=== PATIENT | male | born 1975 | race African-American/Black ===

== ENCOUNTER 2016-10-27 13:12 | Inpatient (IN) ==
[2016-10-27] MEDS ORDERED: ONDANSETRON 4 MG/2 ML VIAL IV STA ×2 (13:34→15:40)
[2016-10-27] MEDS ORDERED: SODIUM CHLORIDE 0.9% 1,000 ML IV STA (13:34)
[2016-10-27] MEDS ORDERED: ALBUTEROL/IPRATROPIUM 3 ML NEB RESP TX STA ×2 (13:34→18:14)
--- NOTE | 2016-10-27 13:39 | Emergency Department Note ---
Arrival - Arrival Chief Complaint: Abdominal / Flank Pain Stated Complaint: abd pain,vomiting ED Nursing Triage Note: C/O Having right sided pain that started today at 1030, states the pain is from the right upper abd.to the lower right side., + nausea. , denies having diarrhea, denies having fever, + drinks alcohol daily 2 pints per day., + diaphrosis , Mode of Arrival: Ambulatory Limitations: No Limitations Source: Patient Time Seen by Provider: 10/27/16 13:33 - History of Present Illness HPI Narrative: This 41-year-old black male presents with a history of onset approximately 4 hours ago of primarily right upper and midepigastric severe sharp abdominal pain not associated with nausea, vomiting, diarrhea, chills, fever, or history of peptic ulcer disease, pancreatitis, or inflammatory bowel disease. He does have intermittent reflux and does drink 2 pints of alcohol a day. He likewise has asthma and states that in the last 24 hours his asthma has begun to act up as well. Over the past several days he states his stomach has been more gassy and bloated but without any other symptoms. He currently appears quite uncomfortable but is stable medically. Onset (ago): hour(s) (Patient presents approximately 4 hours post onset of symptoms) Allergies/Adverse Reactions: Allergies Allergy/AdvReac Type Severity Reaction Status Date / Time Seafood Allergy HIVES Verified 10/27/16 13:22 Home Medications: Home Medications Medication Instructions Recorded Confirmed Type Albuterol Neb [Proventil Neb] 2.5 mg RESP TX Q4HR 10/27/16 10/27/16 History Review of System - Review of System 12 point system: reviewed and no additional remarkable complaints except as stated - Review of System Constitutional: Present: as per HPI Gastrointestinal: Present: as per HPI Medical,Surgical,& Family Hx - Medical History Cardio: History of: Hypertension - Social History Smoking Status: Never smoker Frequency of Alcohol Use: Frequently Type of Drug Use: None Exam Physical Examination: GENERAL: Well developed, well nourished black male bent over groaning. HEENT: Normocephalic. No trauma. Moist mucous membranes. EOMI. PERRLA. ENT NML NECK: Supple. No adenopathy. CARDIAC: Regular. No murmurs. Heart rate 92 CHEST: Clear to auscultation. No respiratory distress. O2 sat 100% ABDOMEN: Firm, midepigastric and right upper quadrant tenderness with significant rebound, hypoactive bowel sounds. EXTREMITIES: No trauma. Normal ROM. No pedal edema. SKIN: No diaphoresis. No rash. NEURO: Alert. Neuro intact. No focal deficits. Vital Signs: Vital Signs Temperature 98.6 F 10/27/16 14:22 Pulse Rate 85 10/27/16 18:25 Respiratory Rate 18 10/27/16 18:25 Blood Pressure 187/93 10/27/16 15:30 O2 Sat by Pulse Oximetry 100 10/27/16 18:25 Course - Reevaluation(s) Reevaluation #1: Discussed with patient the need for hospitalization. - Consultations Consultation #1: Discussed with hospitalist service will admit for further evaluation treatment. Results - Labs CBC & BMP: 10/27/16 13:59 10/27/16 13:59 Labs: I reviewed the laboratory noted the very elevated lipase - Impressions EKG: Sinus rhythm at 92 with normal IN interval and QRS duration. Right ventricular hypertrophy noted. Nonspecific ST changes noted no acute injury pattern noted. - Diagnostic Findings Procedure: Abdominal x-ray: image reviewed by me, report reviewed by me ( Negative abdominal film but notable right hip sclerotic lesion), CT Abdomen and Pelvis: image reviewed by me, report reviewed by me (Retroperitoneal and anterior abdominal fat stranding consistent with pancreatitis as well as fullness to the head of the pancreas, but no discrete mass, fatty liver) Disposition Clinical Impression: Pancreatitis, Asthma, Alcohol use Case discussed with: patient Condition: Guarded Time of Disposition: 18:33
[2016-10-27 14:07] LABS: Basophils % 0.5 % (0.0-0.8); Eosinophils # 0.1 10*3/uL (0.0-0.87); Eosinophils % 1.8 % (0.00-10.9); Hematocrit 48.2 VOL% (42.0-52.0); Hemoglobin 17.1 GM/DL (14.0-18.0); Immature Granulocytes % 0.3 %; Immature Granulocytes Absolute 0.02 #; Lymphocytes # 2.2 10*3/uL (1.4-4.0); Lymphocytes % 35.8 % (21.2-54.2); Mean Corpuscular HGB Conc 35.5 GM/DL (32-36); Mean Corpuscular Hemoglobin 32 PG (27-34); Mean Corpuscular Volume 90.9 FL (87-102); Mean Platelet Volume 9.6 FL (9.6-12.0); Monocytes # 0.5 10*3/uL (0.11-0.8); Monocytes % 8.4 % (1.7-12.7); Neutrophils # 3.2 10*3/uL (1.4-7.4); Neutrophils % 53.2 % (38.7-73.9); Platelet Count 230 T/CUMM (130-400); Red Cell Distribution Width 13.5 % (9.3-17.3)
[2016-10-27] MEDS ORDERED: ONDANSETRON 4 MG/2 ML VIAL ONE ×2 (14:12→16:00)
--- NOTE | 2016-10-27 14:14 | EKG Report ---
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
--- NOTE | 2016-10-27 14:16 | XRay Report ---
Exam: XR abdomen 2V Date: 10/27/2016 1:35 PM Comparison: None Indication: Generalized abdominal pain Technique:[Supine and erect abdomen] Findings: Nonobstructed bowel gas pattern. No free air is identified. No acute osseous findings. 29 mm sclerotic finding in the medial neck of the right femur with surrounding radiolucency. Impression: Nonobstructed bowel gas pattern with no free air. 29 mm ossific lesion in the medial neck of the right femur. There is central sclerosis with surrounding radiolucency. No cortical destruction which indicates that the finding may be benign but is indeterminate and follow-up x-ray of the right hip is recommended for further evaluation. PROCEDURE INTERPRETED AT [facility] DEPARTMENT OF RADIOLOGY Final Report Signed by: Dr. Christiane Dale
[2016-10-27 14:17] LABS: Apearance,Urine CLEAR (Clear); Bilirubin,Urine Negative (Negative); Blood, Urine Negative (Negative); Glucose,Urine (UA) Negative (Negative); Hyaline Casts,Urine 3 /LPF (0-3); Ketones,Urine Negative (Negative); Mucus,Urine Occasional /LPF (Occasional); Nitrite,Urine Negative (Negative); Protein,Urine 30 MG/DL; RBC,Urine 1 /HPF (0-4); Urine Color Yellow (Yellow); Urine Specific Gravity 1.011 (1.001-1.035); Urine Urobilinogen < 2.0 EU/DL (0.2-1.0); WBC,Urine 1 /HPF (0-6)
[2016-10-27 14:24] LABS: Barbiturates Screen,Urine Negative (Negative); Benzodiazepines Screen,Urine Negative (Negative); Cannabinoid Screen,Urine Negative (Negative); Opiate Screen,Urine Negative (Negative); Phencyclidine Screen,Urine Negative (Negative)
[2016-10-27 14:34] LABS: Albumin 3.2 G/DL (3.4-5.0); Bilirubin,Total 0.9 MG/DL (0.2-1.0); Calcium 9.3 MG/DL (8.5-10.1); Osmolality,Calculated 277.4 MOS/KG (273-304); Potassium 3.4 MMOL/L (3.5-5.1); Total Protein 7.8 G/DL (6.4-8.3)
--- NOTE | 2016-10-27 14:43 | XRay Report ---
Exam: XR hip 2V RT Date: 10/27/2016 2:20 PM Comparison: None Indication: Abnormal right hip noted on x-ray of the abdomen Technique:[AP and lateral right hip] Findings: Persistent 29 mm sclerotic finding in the medial neck of the right femur with surrounding radiolucency. The finding is actually better seen on the abdominal x-rays. No cortical destruction, fracture, or dislocation. Impression: 29 mm ossific lesion in the medial neck of the right femur which probably is related to benign bone tumor such as enchondroma or less likely sequela of chronic osteomyelitis. Short-term follow-up x-ray or MRI may be helpful for further evaluation. PROCEDURE INTERPRETED AT [facility] DEPARTMENT OF RADIOLOGY Final Report Signed by: Dr. Christiane Dale
[2016-10-27 14:44] LABS: PT Patient Result 10.3 SECS; Partial Thromboplastin Time 26.1 SECS (0-40)
[2016-10-27 14:46] LABS: Troponin I Only < 0.015 NG/ML (0.00-0.045)
[2016-10-27 15:01] LABS: Lactic Acid 3.2 MMOL/L (0.4-2.0)
[2016-10-27] MEDS ORDERED: SODIUM CHLORIDE 0.9% 2,000 ML IV STA (15:40)
[2016-10-27] MEDS ORDERED: HYDROmorphone 2 MG/1 ML VIAL IV STA ×2 (15:40→18:20)
[2016-10-27] MEDS ORDERED: METOCLOPRAMIDE 10 MG/2 ML VIAL IV STA (15:42)
[2016-10-27] MEDS ORDERED: PANTOPRAZOLE 40 MG VIAL IV STA (15:42)
[2016-10-27] MEDS ORDERED: PANTOPRAZOLE 40 MG VIAL IV ONE (16:00)
[2016-10-27] MEDS ORDERED: METOCLOPRAMIDE 10 MG/2 ML VIAL ONE (16:00)
[2016-10-27] MEDS ORDERED: HYDROmorphone 2 MG/1 ML VIAL ONE ×2 (16:01→18:28)
--- NOTE | 2016-10-27 18:24 | CT Report ---
Postcontrast CT abdomen and pelvis October 27, 2016 Indication: Abdominal pain and pancreatic cancer Comparison: Not available Technique: CT scanning of the abdomen was performed after administration of intravenous contrast per routine protocol. Axial, coronal and sagittal images were submitted for interpretation. Findings: Lung bases well aerated. Liver is enlarged and diffusely hypoattenuating. The gallbladder is nondistended. No ductal dilatation. There is slight heterogeneity and fullness of the pancreatic head. No discrete mass lesions are identified. Stranding soft tissue tissue density is identified within the retroperitoneal and anterior abdominal fat tracking along the pancreas as well as a second third portions of duodenum. No associated bowel wall thickening. Kidneys are normal in morphology and enhancement. Punctate left renal cysts are noted. No hydronephrosis or perinephric fluid collection. Appendix is normal. No colonic abnormalities. Urinary bladder is within normal limits. The prostate gland. No acute osseous abnormality. Impression: 1. Stranding soft tissue density within the upper abdomen predominantly involving the retroperitoneal and anterior abdominal fat at the level of the pancreas and duodenum. Unclear if the findings represented active duodenitis and/or resolving pancreatitis. 2. Mild heterogeneity and fullness to the pancreatic head. No discrete mass lesion is clearly delineated. 3. Hepatomegaly with diffuse steatosis PROCEDURE INTERPRETED AT [facility] DEPARTMENT OF RADIOLOGY Final Report Signed by: Josué Hernandez
[2016-10-27] MEDS ORDERED: hydrALAZINE 20 MG/1 ML VIAL IV STA (19:52)
[2016-10-27] MEDS ORDERED: hydrALAZINE 20 MG/1 ML VIAL ONE (19:53)
--- NOTE | 2016-10-27 19:58 | Hospitalist History & Physical ---
Assessment and Plan (1) Pancreatitis Status: Acute Assessment and plan: hydration, morphine for pain, clear liquids Current Visit: Yes (2) Asthma Status: Acute Assessment and plan: duoneb and solumedrol Current Visit: Yes (3) Hypertension Status: Acute Current Visit: Yes (4) Hypokalemia Status: Acute Assessment and plan: replace and recheck in am Current Visit: Yes (5) Elevated liver enzymes Status: Acute Assessment and plan: cmp in am Current Visit: Yes (6) Alcoholic Status: Acute Assessment and plan: thiamine, tranxene, folate with ativan prn Current Visit: Yes History of Present Illness Chief complaint: abdominal pain History of present illness: Mr. Barrera is a 41 year old male 4 hours ago midepigastric severe sharp abdominal pain with nausea and vomiting. Tried over the counter relief without success. He does have intermittent reflux and does drink 2 pints of whiskey a day. He likewise has asthma and states that in the last 24 hours his asthma has begun to act up as well. Poor historian Home Medications Medication Instructions Recorded Confirmed Type Albuterol Neb [Proventil Neb] 2.5 mg RESP TX Q4HR 10/27/16 10/27/16 History Allergies Allergy/AdvReac Type Severity Reaction Status Date / Time Seafood Allergy HIVES Verified 10/27/16 13:22 Medical,Surgical,& Family Hx - Medical History Cardio: History of: Hypertension Respiratory: History of: Asthma - Surgical History Additional Surgical History: none - Family History Family History: Reports;: Additional Family History (RA) Denies;: Family Cancer, Family Diabetes, Family Heart Disease, Family Stroke - Social History Smoking Status: Never smoker Frequency of Alcohol Use: Frequently Type of Drug Use: None Marital Status: Single Lives With:: Alone Functional capacity: independent ambulation - Constitutional Constitutional: Absent: fatigue, fever(s), headache(s) - EENT Eyes: Absent: blurry vision, diplopia Ears: Absent: decreased hearing, ear discharge Nose, mouth and throat: Absent: headache(s), sore throat - Cardiovascular Cardiovascular: Absent: chest pain at rest, dyspnea - Respiratory Respiratory: Absent: dyspnea, dyspnea on exertion, wheezing - Gastrointestinal Gastrointestinal: Present: abdominal pain, nausea, vomiting. Absent: constipation, diarrhea - Genitourinary Genitourinary: Absent: difficulty urinating, dysuria - Neurological Neurological: Present: confusion. Absent: headache(s), syncope - Psychiatric Psychiatric: Absent: anxiety, depression - Endocrine Endocrine: Absent: cold intolerance, fatigue - Hematologic/Lymphatic Hematologic/Lymphatic: Absent: easy bleeding, easy bruising Exam - Constitutional Vitals: Period Temp Pulse Resp BP Sys/Hansen Pulse Ox Last 24 Hr 98.6 F-98.6 F 79-95 18-22 149-187/93-136 95-100 General appearance: normal weight, no acute distress - Head Head exam: Present: normal inspection, normocephalic - Eye Eye exam: Present: EOMI. Absent: scleral icterus Pupils: Present: PEPE, normal accommodation - ENT ENT exam: Present: normal exam, normal external ear exam - Neck Neck exam: Absent: lymphadenopathy, thyromegaly - Respiratory Respiratory exam: Present: clear to auscultation bilaterally. Absent: rhonchi, wheezes - Cardiovascular Cardiovascular exam: Present: regular rate and rhythm, tachycardia - GI/Abdominal GI/Abdominal exam: Present: hypoactive bowel sounds, tenderness - Extremities Exam Extremities exam: Present: normal inspection, normal capillary refill - Neurological Exam Neurological exam: Present: alert, oriented X3, CN II-XII intact, reflexes normal. Absent: motor sensory deficit - Psychiatric Psychiatric exam: Present: normal affect, normal mood - Skin Skin exam: Present: normal color, warm Results - Labs CBC & BMP: 10/27/16 13:59 10/27/16 13:59 Lab Results: I have reviewed the past 24 hour labs - Diagnostic Findings Procedure: CT Abdomen and Pelvis: report reviewed by me (pancreatitis with liver steatosis )
[2016-10-27] MEDS ORDERED: PROMETHAZINE 25 MG/1 ML VIAL IM PRN (20:05)
[2016-10-27] MEDS ORDERED: ONDANSETRON 4 MG/2 ML VIAL IV PRN (20:05)
[2016-10-27] MEDS ORDERED: methylPREDNISolone SOD SUC 40 MG/1 ML VIAL IV SCH (20:05)
[2016-10-27] MEDS ORDERED: ACETAMINOPHEN 325 MG TABLET PO PRN (20:05)
[2016-10-27] MEDS: SODIUM CHLORIDE 0.45% 1,000 ML IV SCH (20:42)
[2016-10-27] MEDS: ENOXAPARIN 40 MG/0.4 ML SYRINGE SUBCUT SCH (20:42)
[2016-10-27] MEDS: CLORAZEPATE 7.5 MG TABLET PO SCH (20:43)
[2016-10-27] MEDS: POTASSIUM CHLORIDE RIDER 10 MEQ in PREMIX 1 EACH IV SCH ×3 (20:43→23:30)
[2016-10-27] MEDS: CARVEDILOL 6.25 MG TABLET PO SCH (20:43)
[2016-10-27] MEDS ORDERED: ALBUTEROL 2.5 MG/3 ML NEB RESP TX SCH (22:00)
[2016-10-27] MEDS: LORazepam 2 MG/1 ML VIAL IV PRN (22:27)
[2016-10-27] MEDS: ALBUTEROL 2.5 MG/3 ML NEB RESP TX SCH (22:30)
[2016-10-28] MEDS: POTASSIUM CHLORIDE RIDER 10 MEQ in PREMIX 1 EACH IV SCH (00:43)
[2016-10-28] MEDS: LORazepam 2 MG/1 ML VIAL IV PRN (01:42)
[2016-10-28] MEDS: ALBUTEROL 2.5 MG/3 ML NEB RESP TX SCH (02:13)
[2016-10-28] MEDS: hydrALAZINE 20 MG/1 ML VIAL IV PRN (02:57)
[2016-10-28 04:38] LABS: Hematocrit 45.1 VOL% (42.0-52.0); Hemoglobin 15.6 GM/DL (14.0-18.0); Immature Granulocytes % 0.4 %; Immature Granulocytes Absolute 0.04 #; Lymphocytes # 0.4 10*3/uL (1.4-4.0); Lymphocytes % 4.4 % (21.2-54.2); Mean Corpuscular HGB Conc 34.6 GM/DL (32-36); Mean Corpuscular Hemoglobin 32 PG (27-34); Mean Platelet Volume 10.5 FL (9.6-12.0); Monocytes # 0.2 10*3/uL (0.11-0.8); Monocytes % 2.1 % (1.7-12.7); Neutrophils # 8.5 10*3/uL (1.4-7.4); Neutrophils % 93.1 % (38.7-73.9); Platelet Count 210 T/CUMM (130-400); Red Cell Distribution Width 13.7 % (9.3-17.3); White Blood Count 9.1 T/CUMM (4-12)
[2016-10-28 05:06] LABS: Albumin 3.1 G/DL (3.4-5.0); Bilirubin,Total 2.2 MG/DL (0.2-1.0); Calcium 8.4 MG/DL (8.5-10.1); Magnesium 1.5 MG/DL (1.8-2.4); Osmolality,Calculated 270.1 MOS/KG (273-304); Potassium 3.3 MMOL/L (3.5-5.1); Total Protein 7.2 G/DL (6.4-8.3)
[2016-10-28 05:30] LABS: Band Neutrophils 4 % (0-10); Hypochromasia 1+; Lymphocytes 2 % (20-55); Platelet Estimate Normal; Segmented Neutrophils 93 % (50-85); Total Cells Counted 100
[2016-10-28] MEDS ORDERED: ALBUTEROL 2.5 MG/3 ML NEB RESP TX ONE (06:06)
[2016-10-28] MEDS ORDERED: ALBUTEROL 2.5 MG/3 ML NEB RESP TX STA (06:06)
[2016-10-28] MEDS: methylPREDNISolone SOD SUC 125 MG/2 ML VIAL IV SCH ×3 (06:25→22:06)
[2016-10-28] MEDS ORDERED: FOLIC ACID 5 MG/1 ML VIAL IV SCH (09:00)
[2016-10-28] MEDS: CLORAZEPATE 7.5 MG TABLET PO SCH ×3 (09:22→22:04)
[2016-10-28] MEDS: CARVEDILOL 6.25 MG TABLET PO SCH ×2 (09:23→22:03)
[2016-10-28] MEDS: THIAMINE 200 MG/2 ML VIAL IV SCH (09:56)
[2016-10-28] MEDS: FOLIC ACID INJ 1 MG in SYRINGE 1 EACH IV SCH (10:01)
[2016-10-28] MEDS: ALBUTEROL/IPRATROPIUM 3 ML NEB RESP TX PRN ×2 (11:07→14:18)
--- NOTE | 2016-10-28 11:48 | Hospitalist Progress Note ---
Assessment and Plan (1) Pancreatitis Status: Acute Assessment and plan: Patient is started on clear liquids now. Seem to be tolerating it. I have evaluated both patient and nursing that if she he developed discomfort after eating to let us know. We will advance his diet in the morning. Should be noted that the patient did ask to be given something to eat. Current Visit: Yes (2) Asthma Status: Acute Assessment and plan: Continue aerosol treatment for asthma including nebulized albuterol and ipratropium bromide. Current Visit: Yes (3) Hypokalemia Status: Acute Assessment and plan: Repeat chemistry ordered for tomorrow. Include magnesium for tomorrow's chemistry testing. Current Visit: Yes (4) Elevated liver enzymes Status: Acute Current Visit: Yes (5) Alcoholic Status: Acute Assessment and plan: Keep him on monitoring for possibility of DVTs. Benzodiazepines have been ordered in case he develops altered mental status tachycardia and jitteriness. I have talked with the patient at length regarding his habit of alcohol consumption that is directly responsible for his pancreatitis and liver information. He has never had pancreatitis before. He promises to stop drinking. Current Visit: Yes Hospitalist: Subjective Interval history: Patient has been seen interviewed and examined and chart has been reviewed. This is a 41-year-old gentleman admitted overnight with acute abdomen found to have acute pancreatitis associated with alcohol overuse. Patient also has elevated liver enzymes with AST greater than ALT. Most likely is alcoholic hepatitis. Discriminant factor put it at mild alcoholic hepatitis looking at the total bilirubin of 2.2 albumin of 3.2 normal coag profile. Her lipase today is 1879 slightly lower than yesterday and he is already eating with clear liquids. Still complaining of a lot of abdominal pain hematocrit is stable no respiratory problems and a normal lung exam at the bedside (bedside index of severity for acute pancreatitis is around mild to moderate). It is not vomiting anymore Exam - Constitutional Vitals: Period Temp Pulse Resp BP Sys/Hansen Pulse Ox Last 24 Hr 97.1 F-98.6 F 79-109 18-24 135-187/79-136 92-100 General appearance: normal weight, no acute distress - Head Head exam: Present: normocephalic, atraumatic - Eye Eye exam: Present: EOMI, other (Dusky sclera) Pupils: Present: PEPE - ENT ENT exam: Present: normal exam - Neck Neck exam: Present: normal inspection - Respiratory Respiratory exam: Present: clear to auscultation bilaterally - Cardiovascular Cardiovascular exam: Present: tachycardia, other (Regular rhythm with sinus control) - GI/Abdominal GI/Abdominal exam: Present: tenderness (Diffuse tenderness), soft, other - Extremities Exam Extremities exam: Present: full ROM - Neurological Exam Neurological exam: Present: alert, oriented X3, CN II-XII intact - Psychiatric Psychiatric exam: Present: normal affect, normal mood, depressed - Skin Skin exam: Present: normal color, warm, dry Results - Labs CBC & BMP: 10/28/16 03:36 10/28/16 03:36 Lab Results: I have reviewed the past 24 hour labs (Tomorrow morning labs ordered)
[2016-10-28] MEDS: SODIUM CHLORIDE 0.45% 1,000 ML IV SCH ×3 (14:20→21:25)
[2016-10-28] MEDS: ENOXAPARIN 40 MG/0.4 ML SYRINGE SUBCUT SCH (22:04)
[2016-10-29] MEDS: ALBUTEROL/IPRATROPIUM 3 ML NEB RESP TX PRN (01:58)
[2016-10-29 03:34] LABS: Basophils % 0.1 % (0.0-0.8); Hematocrit 42.7 VOL% (42.0-52.0); Hemoglobin 15.1 GM/DL (14.0-18.0); Immature Granulocytes % 0.5 %; Immature Granulocytes Absolute 0.06 #; Lymphocytes # 0.4 10*3/uL (1.4-4.0); Lymphocytes % 3.4 % (21.2-54.2); Mean Corpuscular HGB Conc 35.4 GM/DL (32-36); Mean Corpuscular Hemoglobin 33 PG (27-34); Mean Corpuscular Volume 91.8 FL (87-102); Mean Platelet Volume 10.4 FL (9.6-12.0); Monocytes # 0.2 10*3/uL (0.11-0.8); Monocytes % 1.5 % (1.7-12.7); Neutrophils # 12.4 10*3/uL (1.4-7.4); Neutrophils % 94.5 % (38.7-73.9); Platelet Count 188 T/CUMM (130-400); Red Blood Count 4.65 MC/CUMM (3.8-5.5); Red Cell Distribution Width 14.1 % (9.3-17.3); White Blood Count 13.1 T/CUMM (4-12)
[2016-10-29 04:00] LABS: Albumin 2.7 G/DL (3.4-5.0); Bilirubin,Total 1.3 MG/DL (0.2-1.0); Calcium 8.1 MG/DL (8.5-10.1); Osmolality,Calculated 274.7 MOS/KG (273-304); Potassium 2.9 MMOL/L (3.5-5.1); Total Protein 6.7 G/DL (6.4-8.3)
[2016-10-29] MEDS: SODIUM CHLORIDE 0.45% 1,000 ML IV SCH ×4 (04:14→21:54)
[2016-10-29] MEDS: methylPREDNISolone SOD SUC 125 MG/2 ML VIAL IV SCH (06:14)
[2016-10-29 06:26] LABS: Band Neutrophils 1 % (0-10); Lymphocytes 2 % (20-55); Platelet Estimate Normal; Segmented Neutrophils 96 % (50-85); Total Cells Counted 100
--- NOTE | 2016-10-29 08:45 | Hospitalist Progress Note ---
Hospitalist: Subjective Interval history: Pt reports upper abdominal pain is improving. He had oral pain medication this am. No fever. No nausea or vomiting. Mild sweats but no tremors or confusion. He requests resources to aid in alcohol cessation. Exam - Constitutional Vitals: Period Temp Pulse Resp BP Sys/Hansen Pulse Ox Last 24 Hr 97.1 F-97.6 F 84-99 18-22 133-154/78-107 90-98 Exam: GEN: Awake, alert and oriented to person, place, time and situation lying in bed in NAD. No tremors or sweats HEENT: no thrush. Clear sclera. No nystagmus CV: RRR nl S1/ S2 no M/R/G LUNGS: CTAB nonlabored ABD: Soft, NT, slightly distended, +BS EXT: Warm and well perfused. No clubbing, cyanosis or edema. MAGUIRE equally. Results - Labs CBC & BMP: 10/29/16 02:55 10/29/16 02:55 - Impressions (1) Pancreatitis due to alcohol- improving Status: Acute Assessment and plan: -Advance to full liquid diet and if tolerated, low fat soft diet -Decrease IVF -PPI -Check lipid panel Current Visit: Yes (2) Asthma exacerbation- improved Status: Acute Assessment and plan: Continue bronchodilators. Stop IV steroids. Current Visit: Yes (3) Hypokalemia/ Hypomagnesemia Status: Acute Assessment and plan: Replace lytes. Recheck in am. Check Phosphorus and replace as clinically indicated Current Visit: Yes (4) Elevated liver enzymes- likely due to chronic alcohol use- improving Status: Acute Current Visit: Yes - Fatty liver noted on CT scan without dilated GB or gallstones noted. - Serial labs (5) Alcoholism Status: Acute Assessment and plan: - Taper Tranxene today to BID. Then can reduce to daily in AM for 1 dose and then stop. Ativan IV available as needed - Cont Folic acid and thiamine for now. Can change to po once tolerating soft, low fat diet. - Cont monitoring for possibility of DVTs. - Will consult social work/ case mgt to provide patient with alcohol cessation information ([facility], [facility] vs other). Pt is very receptive to this. Current Visit: Yes DVT prophylaxis- Lovenox Dispo: likely dc in next 24-48 hours pending how he tolerates diet and how his pain is controlled. D/W pt and nurse and all questions answered. I will be away several days. One of my associates will follow in my absence.
[2016-10-29] MEDS: CLORAZEPATE 7.5 MG TABLET PO SCH ×2 (09:15→21:51)
[2016-10-29] MEDS: POTASSIUM CHLORIDE 20 MEQ TABLET PO SCH ×3 (09:15→21:51)
[2016-10-29] MEDS: CARVEDILOL 6.25 MG TABLET PO SCH ×2 (09:15→21:51)
[2016-10-29] MEDS: THIAMINE 200 MG/2 ML VIAL IV SCH (09:17)
[2016-10-29] MEDS: FOLIC ACID INJ 1 MG in SYRINGE 1 EACH IV SCH (09:25)
[2016-10-29] MEDS: MAGNESIUM OXIDE 400 MG TABLET PO SCH ×3 (09:34→21:51)
[2016-10-29 10:15] LABS: Risk Ratio 1.4; VLDL CHOLESTEROL 8.6 MG/DL
[2016-10-29] MEDS: PANTOPRAZOLE 40 MG TABLET PO SCH (15:25)
[2016-10-29] MEDS ORDERED: hydrALAZINE 20 MG/1 ML VIAL IV ONE (18:13)
[2016-10-29] MEDS: ENOXAPARIN 40 MG/0.4 ML SYRINGE SUBCUT SCH (21:54)
[2016-10-30 04:04] LABS: Basophils % 0.1 % (0.0-0.8); Hematocrit 44.6 VOL% (42.0-52.0); Hemoglobin 15.4 GM/DL (14.0-18.0); Immature Granulocytes % 0.6 %; Immature Granulocytes Absolute 0.07 #; Lymphocytes # 1.4 10*3/uL (1.4-4.0); Lymphocytes % 12.7 % (21.2-54.2); Mean Corpuscular HGB Conc 34.5 GM/DL (32-36); Mean Corpuscular Hemoglobin 32 PG (27-34); Mean Corpuscular Volume 92.7 FL (87-102); Mean Platelet Volume 10.6 FL (9.6-12.0); Monocytes # 0.6 10*3/uL (0.11-0.8); Monocytes % 5.5 % (1.7-12.7); Neutrophils # 9.1 10*3/uL (1.4-7.4); Neutrophils % 81.1 % (38.7-73.9); Platelet Count 180 T/CUMM (130-400); Red Blood Count 4.81 MC/CUMM (3.8-5.5); Red Cell Distribution Width 13.9 % (9.3-17.3); White Blood Count 11.2 T/CUMM (4-12)
[2016-10-30] MEDS: SODIUM CHLORIDE 0.45% 1,000 ML IV SCH ×3 (04:04→18:12)
[2016-10-30 04:32] LABS: Albumin 2.6 G/DL (3.4-5.0); Bilirubin,Total 1.1 MG/DL (0.2-1.0); Calcium 8.3 MG/DL (8.5-10.1); Osmolality,Calculated 273.5 MOS/KG (273-304); Potassium 3.3 MMOL/L (3.5-5.1); Total Protein 6.6 G/DL (6.4-8.3)
[2016-10-30] MEDS: hydrALAZINE 20 MG/1 ML VIAL IV PRN (06:40)
--- NOTE | 2016-10-30 09:34 | Hospitalist Progress Note ---
Assessment and Plan - Time spent with patient Time spent with patient: Less than 30 minutes (1) Pancreatitis Status: Acute Assessment and plan: 10/30/16 Tolerating diet -Lipid: 10/29/16 triglycerides 43, cholesterol 199, LDL 41.0, HDL 142, -Improving Lipase (350.0 today 10/30/16) -repeat a.m. labs, continue fluids at 75cc/hr Current Visit: Yes (2) Asthma exacerbation Status: Acute Assessment and plan: 10/30/16 - Improved -continue bronchodilators, discontinued steroids Current Visit: Yes (3) Hypokalemia Status: Acute Assessment and plan: 10/30/16 - K up to 3.3 from 2.9 -continue K replacement per protocol -magnesium improved to 1.7 from 1.5 -continue magnesium replacement -repeat labs in a.m. Current Visit: Yes Hospitalist: Subjective Interval history: Mr Barrera verbalized feeling better this a.m. Denies any shortness of breath, abdominal pain, nausea, or vomiting. He reports the PRN pain medication provides control of his pain. He reports a normal BM last night without abdominal pain. I discussed with him the importance of getting up to the chair today and trying to ambulate at least around in his room. He agrees to get up to chair later today. Exam - Constitutional Vitals: Period Temp Pulse Resp BP Sys/Hansen Pulse Ox Last 24 Hr 97.2 F-98.9 F 81-93 18-22 126-160/79-115 90-97 General appearance: normal weight, no acute distress - Head Head exam: Present: normal inspection - Eye Eye exam: Present: EOMI Pupils: Present: PEPE - Neck Neck exam: Present: normal inspection - Respiratory Respiratory exam: Present: clear to auscultation bilaterally. Absent: stridor, wheezes - Cardiovascular Cardiovascular exam: Present: regular rate and rhythm - GI/Abdominal GI/Abdominal exam: Present: normal bowel sounds, soft. Absent: tenderness, rebound - Extremities Exam Extremities exam: Present: normal inspection, full ROM. Absent: edema - Back Exam Back exam: Present: normal inspection - Neurological Exam Neurological exam: Present: alert, oriented X3, CN II-XII intact - Psychiatric Psychiatric exam: Present: normal affect, normal mood. Absent: agitated, anxious - Skin Skin exam: Present: normal color, warm, dry Results - Labs CBC & BMP: 10/30/16 03:35 10/30/16 03:35 Lab Results: I have reviewed the past 24 hour labs
[2016-10-30] MEDS: FOLIC ACID INJ 1 MG in SYRINGE 1 EACH IV SCH (09:46)
[2016-10-30] MEDS: PANTOPRAZOLE 40 MG TABLET PO SCH (09:47)
[2016-10-30] MEDS: THIAMINE 200 MG/2 ML VIAL IV SCH (09:47)
[2016-10-30] MEDS: CLORAZEPATE 7.5 MG TABLET PO SCH ×2 (09:47→21:12)
[2016-10-30] MEDS: CARVEDILOL 6.25 MG TABLET PO SCH ×2 (09:47→21:12)
[2016-10-30] MEDS: ALBUTEROL/IPRATROPIUM 3 ML NEB RESP TX PRN (14:42)
[2016-10-30] MEDS: POTASSIUM CHLORIDE 20 MEQ TABLET PO SCH ×2 (16:14→20:12)
[2016-10-30] MEDS: ENOXAPARIN 40 MG/0.4 ML SYRINGE SUBCUT SCH (21:12)
[2016-10-31] MEDS: POTASSIUM CHLORIDE 20 MEQ TABLET PO SCH (01:14)
[2016-10-31] MEDS: MORPHINE 2 MG/1 ML SYRINGE IV PRN (01:21)
[2016-10-31] MEDS: ALBUTEROL/IPRATROPIUM 3 ML NEB RESP TX PRN ×3 (03:38→16:54)
[2016-10-31 05:39] LABS: Basophils % 0.2 % (0.0-0.8); Hematocrit 47.1 VOL% (42.0-52.0); Hemoglobin 16.5 GM/DL (14.0-18.0); Immature Granulocytes % 0.5 %; Immature Granulocytes Absolute 0.06 #; Lymphocytes # 1.7 10*3/uL (1.4-4.0); Lymphocytes % 14.3 % (21.2-54.2); Mean Corpuscular Hemoglobin 32 PG (27-34); Mean Corpuscular Volume 92.2 FL (87-102); Mean Platelet Volume 10.7 FL (9.6-12.0); Monocytes % 8.5 % (1.7-12.7); NRBC # 0.02 10*3/uL; Neutrophils # 9.1 10*3/uL (1.4-7.4); Neutrophils % 76.5 % (38.7-73.9); Platelet Count 182 T/CUMM (130-400); Red Blood Count 5.11 MC/CUMM (3.8-5.5); White Blood Count 11.9 T/CUMM (4-12)
[2016-10-31 06:08] LABS: Calcium 8.3 MG/DL (8.5-10.1); Magnesium 2.1 MG/DL (1.8-2.4); Osmolality,Calculated 266.1 MOS/KG (273-304)
[2016-10-31] MEDS: CLORAZEPATE 7.5 MG TABLET PO SCH ×2 (09:15→21:09)
[2016-10-31] MEDS: PANTOPRAZOLE 40 MG TABLET PO SCH (09:15)
[2016-10-31] MEDS: CARVEDILOL 6.25 MG TABLET PO SCH ×2 (09:15→21:09)
[2016-10-31] MEDS: FOLIC ACID INJ 1 MG in SYRINGE 1 EACH IV SCH (09:22)
[2016-10-31] MEDS: THIAMINE 200 MG/2 ML VIAL IV SCH (09:22)
--- NOTE | 2016-10-31 11:09 | Hospitalist Progress Note ---
Assessment and Plan (1) Alcohol abuse Status: Acute Assessment and plan: He has been counseled on the importance of alcohol abuse cessation. Current Visit: Yes (2) Pancreatitis Status: Acute Assessment and plan: Clinically he is significantly improved. His lipase was 1879 on admission, decreased to 350 yesterday, and has increased to 994 today. His total bilirubin was 2.2 on admission and has decreased to 1.1 yesterday. I will advance him to a bland diet today. Current Visit: Yes (3) Hypokalemia Status: Acute Assessment and plan: His potassium today is 3.0. It was 3.3 on admission. I have begun him on potassium chloride 40 mEq p.o. daily. Current Visit: Yes Hospitalist: Subjective Interval history: Patient states that he is feeling improved. He is not experiencing abdominal pain, nausea, or vomiting. He requests that his diet be advanced. Exam - Constitutional Vitals: Period Temp Pulse Resp BP Sys/Hansen Pulse Ox Last 24 Hr 97.1 F-100.9 F 88-96 16-20 126-153/75-93 91-99 General appearance: no acute distress - Head Head exam: Present: normal inspection - Neck Neck exam: Present: normal inspection - Respiratory Respiratory exam: Present: clear to auscultation bilaterally - Cardiovascular Cardiovascular exam: Present: regular rate and rhythm - GI/Abdominal GI/Abdominal exam: Present: normal bowel sounds, soft, other (Nontender with no palpable masses or hepatosplenomegaly.) - Extremities Exam Extremities exam: Present: normal inspection - Neurological Exam Neurological exam: Present: alert, oriented X3 - Skin Skin exam: Present: normal color, warm, intact Results - Labs CBC & BMP: 10/31/16 04:42 10/31/16 04:42
[2016-10-31] MEDS ORDERED: POTASSIUM CHLORIDE 20 MEQ TABLET PO SCH (12:00)
[2016-10-31] MEDS: ENOXAPARIN 40 MG/0.4 ML SYRINGE SUBCUT SCH (21:09)
[2016-11-01] MEDS: MORPHINE 2 MG/1 ML SYRINGE IV PRN (01:23)
[2016-11-01 04:18] LABS: Basophils % 0.3 % (0.0-0.8); Eosinophils # 0.1 10*3/uL (0.0-0.87); Eosinophils % 0.6 % (0.00-10.9); Hematocrit 45.3 VOL% (42.0-52.0); Hemoglobin 15.9 GM/DL (14.0-18.0); Immature Granulocytes Absolute 0.11 #; Lymphocytes # 1.9 10*3/uL (1.4-4.0); Mean Corpuscular HGB Conc 35.1 GM/DL (32-36); Mean Corpuscular Hemoglobin 32 PG (27-34); Mean Corpuscular Volume 91.3 FL (87-102); Mean Platelet Volume 10.3 FL (9.6-12.0); Monocytes # 1.2 10*3/uL (0.11-0.8); Monocytes % 11.1 % (1.7-12.7); Neutrophils # 7.4 10*3/uL (1.4-7.4); Platelet Count 177 T/CUMM (130-400); Red Blood Count 4.96 MC/CUMM (3.8-5.5); Red Cell Distribution Width 13.4 % (9.3-17.3); White Blood Count 10.7 T/CUMM (4-12)
[2016-11-01 04:57] LABS: Albumin 2.1 G/DL (3.4-5.0); Calcium 8.2 MG/DL (8.5-10.1); Osmolality,Calculated 268.1 MOS/KG (273-304); Total Protein 5.8 G/DL (6.4-8.3)
--- NOTE | 2016-11-01 08:40 | Discharge Summary ---
Hospital Course - Hospital Course Hospital Course: Patient was admitted to the hospital with abdominal pain, nausea, and vomiting. Evaluation showed him to have elevated lipase, amylase, and LFT's compatible with acute pancreatitis and hepatitis secondary to alcohol abuse. He was also found to have hypokalemia. He was treated with bowel rest and KCl replacement. At the time of discharge, he was comfortable and eating solid food without problems. Diagnosis - Discharge Diagnosis (1) Alcohol abuse Status: Chronic (2) Pancreatitis Status: Acute (3) Hypokalemia Status: Acute (4) Hepatitis, alcoholic, acute Status: Acute Discharge Plan - Discharge Data Condition at Discharge: Stable Discharge Diet: advance to your usual diet, other (No alcohol) Activity: resume usual activities as tolerated - Discharge Medications New Potassium Chloride Cap/Tab [K Dur] 40 meq PO BID #14 tablet Continue Albuterol Neb [Proventil Neb] 2.5 mg RESP TX Q4HR - Follow Up or Referral - Forms/Instructions Exam - Constitutional Vitals: Period Temp Pulse Resp BP Sys/Hansen Pulse Ox Last 24 Hr 97.2 F-99.3 F 82-96 18-22 120-144/77-92 94-99 Discharge Results Procedures and tests throughout hospitalization: Pending Orders 10/27/16 13:59 Blood Culture Stat 11/02/16 04:00 Amylase IN AM Comprehensive Metabolic Panel IN AM Lipase IN AM Labs on day of discharge: Labs from last 24 hours 11/01/16 11/01/16 03:34 03:34 WBC 10.7 RBC 4.96 Hgb 15.9 Hct 45.3 MCV 91.3 MCH 32 MCHC 35.1 RDW 13.4 Plt Count 177 MPV 10.3 Neut % (Auto) 69.0 Lymph % (Auto) 18.0 L [place] % (Auto) 11.1 Eos % (Auto) 0.6 Baso % (Auto) 0.3 Neut # (Auto) 7.4 Lymph # (Auto) 1.9 [place] # (Auto) 1.2 H Eos # (Auto) 0.1 Baso # (Auto) 0.0 Immature Gran % 1.0 Nucleated RBC % 0.0 Immature Gran # 0.11 Nucleated RBCs # 0.00 Immature Plt Fraction 0.0 Sodium 135 L Potassium 3.0 L Chloride 99 Carbon Dioxide 26 Anion Gap 13.0 BUN 6 L Creatinine 0.60 L GFR Calculation 168 BUN/Creatinine Ratio 10.00 Glucose 112 H Calculated Osmolality 268.1 L Calcium 8.2 L Total Bilirubin 2.00 H AST 40 H ALT 27 Alkaline Phosphatase 65 Total Protein 5.8 L Albumin 2.1 L Globulin 3.7 H Albumin/Globulin Ratio 0.5 L Amylase 156 H Lipase 1064.0 H Preliminary micro results at discharge 10/27/16 13:59 Blood Culture - Preliminary Blood No growth at 3 days 10/27/16 13:59 Blood Culture - Preliminary Blood No growth at 3 days DS: Provider Date of admission: 10/27/16 19:35 Primary care physician: . No PCP Attending physician on admission: Giovany Hodge MD Consults: 10/29/16 10:05 Consult to Case Mgmt/Social Srvs [CONS] Routine Reason for Case Mgmt/Social Srvs: Other Consult Comment: please provide pt with alcohol cessation programs ([facility], [facility], etc.) Discharging clinician: Wesley Martell
[2016-11-01] MEDS: CLORAZEPATE 7.5 MG TABLET PO SCH (08:59)
[2016-11-01] MEDS: PANTOPRAZOLE 40 MG TABLET PO SCH (09:00)
[2016-11-01] MEDS: CARVEDILOL 6.25 MG TABLET PO SCH (09:00)
[2016-11-01] MEDS ORDERED: POTASSIUM CHLORIDE 20 MEQ TABLET PO SCH (09:00)
[2016-11-01] MEDS: THIAMINE 200 MG/2 ML VIAL IV SCH (09:01)
[2016-11-01] MEDS: FOLIC ACID INJ 1 MG in SYRINGE 1 EACH IV SCH (09:02)
[2016-11-01 09:03] VITALS: BP 119/78
== END 2016-11-01 11:00 | disposition home or self-care (01) | DRG 432 ==
LOC: N.ED 13:12 → N.EDINP 19:35 → SUATTDRO 19:35 → N.2E 20:01
PROVIDERS: ADMIT Internal Medicine

== ENCOUNTER 2018-02-16 13:32 | Inpatient (IN) ==
[2018-02-16] MEDS ORDERED: DICYCLOMINE 20 MG/2 ML AMP IM ONE (14:12)
[2018-02-16] MEDS ORDERED: PANTOPRAZOLE 40 MG VIAL IV STA (14:12)
[2018-02-16] MEDS ORDERED: SODIUM CHLORIDE 0.9% 1,000 ML IV STA (14:12)
[2018-02-16] MEDS ORDERED: ONDANSETRON 4 MG/2 ML VIAL IV STA (14:12)
[2018-02-16] MEDS ORDERED: ALUM/MAG/SIMETH/LIDO VISC 1:1 30 ML BOTTLE PO STA (14:12)
[2018-02-16] MEDS ORDERED: HYDROmorphone 2 MG/1 ML VIAL IV STA (14:12)
[2018-02-16 14:28] LABS: Basophils % 0.2 % (0.0-0.8); Eosinophils % 0.3 % (0.00-10.9); Hematocrit 49.3 VOL% (42.0-52.0); Hemoglobin 16.6 GM/DL (14.0-18.0); Immature Granulocytes % 0.4 %; Immature Granulocytes Absolute 0.04 #; Lymphocytes # 1.8 10*3/uL (1.4-4.0); Lymphocytes % 17.4 % (21.2-54.2); Mean Corpuscular HGB Conc 33.7 GM/DL (32-36); Mean Corpuscular Hemoglobin 32 PG (27-34); Mean Corpuscular Volume 95.4 FL (87-102); Mean Platelet Volume 9.4 FL (9.6-12.0); Monocytes # 0.5 10*3/uL (0.11-0.8); Monocytes % 5.3 % (1.7-12.7); Neutrophils # 7.7 10*3/uL (1.4-7.4); Neutrophils % 76.4 % (38.7-73.9); Platelet Count 228 T/CUMM (130-400); Red Blood Count 5.17 MC/CUMM (3.8-5.5); Red Cell Distribution Width 12.6 % (9.3-17.3); White Blood Count 10.1 T/CUMM (4-12)
[2018-02-16 14:54] LABS: Troponin I < 0.015 NG/ML (0.00-0.045)
[2018-02-16 15:00] LABS: Albumin 3.2 G/DL (3.4-5.0); Bilirubin,Total 0.8 MG/DL (0.2-1.0); Calcium 8.6 MG/DL (8.5-10.1); Osmolality,Calculated 273.5 MOS/KG (273-304); Potassium 3.1 MMOL/L (3.5-5.1); Total Protein 8.5 G/DL (6.4-8.3)
[2018-02-16 15:15] LABS: Lactic Acid 4.8 MMOL/L (0.4-2.0)
[2018-02-16] MEDS ORDERED: ONDANSETRON 4 MG/2 ML VIAL IV PRN (15:56)
[2018-02-16] MEDS ORDERED: LORazepam 2 MG/1 ML VIAL IV PRN (15:56)
[2018-02-16] MEDS ORDERED: PROMETHAZINE 25 MG/1 ML VIAL IM PRN (15:56)
[2018-02-16] MEDS ORDERED: hydrALAZINE 20 MG/1 ML VIAL IV PRN (16:10)
[2018-02-16 17:15] LABS: Folate 5.1 NG/ML (5.4-24.0)
[2018-02-16 17:54] LABS: Hepatitis A Ab IgM Quant 0.15 Index; Hepatitis A Ab IgM Result Negative (Negative); Hepatitis B Core IgM Quant 0.06 Index; Hepatitis B Core IgM Result Negative (Negative); Hepatitis B Surface Ag Quant < 0.10 Index; Hepatitis B Surface Ag Result Negative (Negative); Hepatitis C Virus Ab Quant < 0.02 Index; Hepatitis C Virus Ab Result Negative (Negative)
[2018-02-16] MEDS: MORPHINE 4 MG/1 ML VIAL IV PRN ×2 (18:12→21:17)
[2018-02-16] MEDS: SODIUM CHLORIDE 0.9% 1,000 ML IV SCH (18:14)
[2018-02-16] MEDS: HEPARIN 5,000 UNIT/1 ML VIAL SUBCUT SCH (18:28)
[2018-02-16] MEDS: THIAMINE INJ 100 MG, FOLIC ACID INJ 1 MG, MULTIVITAMIN INJ 10 ML in SODIUM CHLORIDE 0.9... IV SCH (21:19)
[2018-02-17] MEDS: ALBUTEROL 2.5 MG/3 ML NEB RESP TX PRN ×2 (00:04→08:35)
[2018-02-17] MEDS: MORPHINE 4 MG/1 ML VIAL IV PRN ×6 (00:20→20:13)
[2018-02-17 00:21] LABS: Apearance,Urine CLEAR (Clear); Bilirubin,Urine Negative (Negative); Blood, Urine Negative (Negative); Glucose,Urine (UA) Negative (Negative); Hyaline Casts,Urine 3 /LPF (0-3); Ketones,Urine 20 mg/dL (Negative); Mucus,Urine Occasional /LPF (Occasional); Nitrite,Urine Negative (Negative); Protein,Urine Negative; Urine Color Yellow (Yellow); Urine Specific Gravity 1.015 (1.001-1.035); Urine Urobilinogen < 2.0 EU/DL (0.2-1.0); WBC,Urine 1 /HPF (0-6)
[2018-02-17] MEDS: HEPARIN 5,000 UNIT/1 ML VIAL SUBCUT SCH ×3 (00:26→16:45)
[2018-02-17 00:33] LABS: Barbiturates Screen,Urine Negative (Negative); Benzodiazepines Screen,Urine Negative (Negative); Cannabinoid Screen,Urine Negative (Negative); Opiate Screen,Urine Positive (Negative); Phencyclidine Screen,Urine Negative (Negative)
[2018-02-17 05:24] LABS: Basophils % 0.1 % (0.0-0.8); Eosinophils % 0.1 % (0.00-10.9); Hematocrit 46.8 VOL% (42.0-52.0); Hemoglobin 15.7 GM/DL (14.0-18.0); Immature Granulocytes % 0.5 %; Immature Granulocytes Absolute 0.04 #; Mean Corpuscular HGB Conc 33.5 GM/DL (32-36); Mean Corpuscular Hemoglobin 32 PG (27-34); Mean Corpuscular Volume 96.1 FL (87-102); Mean Platelet Volume 9.6 FL (9.6-12.0); Monocytes # 0.5 10*3/uL (0.11-0.8); Monocytes % 6.3 % (1.7-12.7); Neutrophils # 6.7 10*3/uL (1.4-7.4); Platelet Count 172 T/CUMM (130-400); Red Blood Count 4.87 MC/CUMM (3.8-5.5); Red Cell Distribution Width 12.8 % (9.3-17.3); White Blood Count 8.3 T/CUMM (4-12)
[2018-02-17 05:49] LABS: Albumin 2.8 G/DL (3.4-5.0); Bilirubin,Direct 0.32 MG/DL (0.0-0.20); Bilirubin,Indirect 1.3 MG/DL (0.0-1.0); Bilirubin,Total 1.6 MG/DL (0.2-1.0); Total Protein 7.2 G/DL (6.4-8.3)
[2018-02-17 05:50] LABS: Albumin 2.7 G/DL (3.4-5.0); Bilirubin,Total 1.7 MG/DL (0.2-1.0); Calcium 7.8 MG/DL (8.5-10.1); Potassium 3.5 MMOL/L (3.5-5.1); Total Protein 7.2 G/DL (6.4-8.3)
[2018-02-17] MEDS: SODIUM CHLORIDE 0.9% 1,000 ML IV SCH ×4 (07:45→18:09)
[2018-02-17] MEDS: PANTOPRAZOLE 40 MG VIAL IV SCH (08:21)
[2018-02-17] MEDS: THIAMINE 200 MG/2 ML VIAL IV SCH (08:26)
[2018-02-17] MEDS: FOLIC ACID 0.4 MG TABLET PO SCH (09:24)
[2018-02-17] MEDS: FOLIC ACID INJ 1 MG in SYRINGE 1 EACH IV SCH (09:24)
[2018-02-17] MEDS: THIAMINE INJ 100 MG, FOLIC ACID INJ 1 MG, MULTIVITAMIN INJ 10 ML in SODIUM CHLORIDE 0.9... IV SCH (20:14)
[2018-02-18] MEDS: HEPARIN 5,000 UNIT/1 ML VIAL SUBCUT SCH ×2 (00:11→09:49)
[2018-02-18] MEDS: ALBUTEROL 2.5 MG/3 ML NEB RESP TX PRN (00:12)
[2018-02-18] MEDS: SODIUM CHLORIDE 0.9% 1,000 ML IV SCH ×2 (00:16→07:47)
[2018-02-18 04:36] LABS: Basophils % 0.1 % (0.0-0.8); Eosinophils % 0.3 % (0.00-10.9); Hematocrit 47.3 VOL% (42.0-52.0); Hemoglobin 15.6 GM/DL (14.0-18.0); Immature Granulocytes % 0.7 %; Immature Granulocytes Absolute 0.08 #; Lymphocytes # 1.2 10*3/uL (1.4-4.0); Lymphocytes % 10.1 % (21.2-54.2); Mean Corpuscular Hemoglobin 32 PG (27-34); Mean Corpuscular Volume 96.1 FL (87-102); Monocytes # 0.8 10*3/uL (0.11-0.8); Monocytes % 6.5 % (1.7-12.7); Neutrophils # 9.4 10*3/uL (1.4-7.4); Neutrophils % 82.3 % (38.7-73.9); Platelet Count 168 T/CUMM (130-400); Red Blood Count 4.92 MC/CUMM (3.8-5.5); Red Cell Distribution Width 12.6 % (9.3-17.3); White Blood Count 11.5 T/CUMM (4-12)
[2018-02-18 04:54] LABS: Albumin 2.6 G/DL (3.4-5.0); Bilirubin,Total 1.8 MG/DL (0.2-1.0); Calcium 8.1 MG/DL (8.5-10.1); Osmolality,Calculated 264.2 MOS/KG (273-304); Potassium 3.2 MMOL/L (3.5-5.1); Total Protein 7.2 G/DL (6.4-8.3)
[2018-02-18 04:55] LABS: Albumin 2.6 G/DL (3.4-5.0); Bilirubin,Direct 0.48 MG/DL (0.0-0.20); Bilirubin,Indirect 1.2 MG/DL (0.0-1.0); Bilirubin,Total 1.7 MG/DL (0.2-1.0); Total Protein 7.3 G/DL (6.4-8.3)
[2018-02-18] MEDS: MORPHINE 4 MG/1 ML VIAL IV PRN (06:30)
[2018-02-18] MEDS ORDERED: POTASSIUM CHLORIDE 20 MEQ TABLET PO ONE (07:32)
[2018-02-18] MEDS: PANTOPRAZOLE 40 MG VIAL IV SCH (11:07)
[2018-02-18] MEDS: FOLIC ACID 0.4 MG TABLET PO SCH (11:07)
[2018-02-18] MEDS: THIAMINE 200 MG/2 ML VIAL IV SCH (11:11)
[2018-02-18 11:47] VITALS: BP 142/95
[2018-02-18] MEDS: FOLIC ACID INJ 1 MG in SYRINGE 1 EACH IV SCH (13:30)
== END 2018-02-18 15:00 | disposition home or self-care (01) | DRG 439 ==
LOC: N.ED 13:32 → SUATTDRO 16:00 → N.EDINP 16:00 → N.3E 17:56 → N.4E 02-17 18:22
PROVIDERS: ADMIT Internal Medicine; ATTEND Internal Medicine Infectious Disease

== ENCOUNTER 2018-09-03 08:01 | Inpatient (IN) ==
[2018-09-03] MEDS ORDERED: ONDANSETRON 4 MG/2 ML VIAL IV STA (08:42)
[2018-09-03] MEDS ORDERED: SODIUM CHLORIDE 0.9% 1,000 ML IV STA (08:42)
[2018-09-03] MEDS ORDERED: MORPHINE 10 MG/1 ML VIAL IV STA (08:43)
[2018-09-03 08:55] LABS: Basophils % 0.4 % (0.0-0.8); Eosinophils % 0.1 % (0.00-10.9); Hematocrit 51.8 VOL% (42.0-52.0); Hemoglobin 17.5 GM/DL (14.0-18.0); Immature Granulocytes % 0.4 %; Immature Granulocytes Absolute 0.03 #; Lymphocytes # 0.9 10*3/uL (1.4-4.0); Lymphocytes % 12.6 % (21.2-54.2); Mean Corpuscular HGB Conc 33.8 GM/DL (32-36); Mean Corpuscular Volume 94.9 FL (87-102); Mean Platelet Volume 10.8 FL (9.6-12.0); Monocytes % 3.4 % (1.7-12.7); Neutrophils % 83.1 % (38.7-73.9); Platelet Count 123 T/CUMM (130-400); Red Blood Count 5.46 MC/CUMM (3.8-5.5); Red Cell Distribution Width 12.4 % (9.3-17.3); White Blood Count 7.4 T/CUMM (4-12)
[2018-09-03 09:13] LABS: Albumin 3.4 G/DL (3.4-5.0); Bilirubin,Total 1.6 MG/DL (0.2-1.0); Calcium 9.1 MG/DL (8.5-10.1); Osmolality,Calculated 266.2 MOS/KG (273-304); Total Protein 8.4 G/DL (6.4-8.3)
[2018-09-03] MEDS ORDERED: ALBUTEROL/IPRATROPIUM 3 ML NEB RESP TX STA (09:16)
[2018-09-03 09:20] LABS: Eosinophils 1 % (0-10); Hypochromasia 1+; Lymphocytes 6 % (20-55); Platelet Estimate Adequate; Segmented Neutrophils 89 % (50-85); Total Cells Counted 100
[2018-09-03] MEDS ORDERED: ONDANSETRON 4 MG/2 ML VIAL IV PRN (09:56)
[2018-09-03] MEDS ORDERED: PROMETHAZINE 25 MG/1 ML VIAL IM PRN (09:56)
[2018-09-03] MEDS ORDERED: hydrALAZINE 20 MG/1 ML VIAL IV PRN (10:02)
[2018-09-03] MEDS ORDERED: THIAMINE INJ 100 MG, FOLIC ACID INJ 1 MG, MULTIVITAMIN INJ 10 ML in SODIUM CHLORIDE 0.9... IV ONE (10:16)
[2018-09-03 10:24] LABS: Triglycerides 59 MG/DL (2-150)
[2018-09-03] MEDS: MEROPENEM 1,000 MG in SODIUM CHLORIDE 0.9% 100 ML IV SCH ×2 (12:34→18:26)
[2018-09-03] MEDS: ENOXAPARIN 40 MG/0.4 ML SYRINGE SUBCUT SCH (12:34)
[2018-09-03] MEDS: FAMOTIDINE 20 MG/2 ML VIAL IV SCH ×2 (12:35→21:00)
[2018-09-03] MEDS: chlordiazePOXIDE 25 MG CAPSULE PO SCH ×3 (12:35→20:50)
[2018-09-03] MEDS: HYDROmorphone 2 MG/1 ML VIAL IV PRN ×4 (12:36→23:33)
[2018-09-03 13:40] LABS: Folate 15.6 NG/ML (5.4-24.0)
[2018-09-03] MEDS: LACTATED RINGERS 1,000 ML IV SCH ×4 (16:34→21:54)
[2018-09-04] MEDS: MEROPENEM 1,000 MG in SODIUM CHLORIDE 0.9% 100 ML IV SCH ×3 (01:42→17:13)
[2018-09-04] MEDS: LACTATED RINGERS 1,000 ML IV SCH ×2 (02:55→06:17)
[2018-09-04] MEDS: HYDROmorphone 2 MG/1 ML VIAL IV PRN ×2 (05:09→09:54)
[2018-09-04 05:44] LABS: Basophils % 0.2 % (0.0-0.8); Hematocrit 51.6 VOL% (42.0-52.0); Hemoglobin 17.7 GM/DL (14.0-18.0); Immature Granulocytes % 0.7 %; Immature Granulocytes Absolute 0.11 #; Lymphocytes # 0.8 10*3/uL (1.4-4.0); Lymphocytes % 4.6 % (21.2-54.2); Mean Corpuscular HGB Conc 34.3 GM/DL (32-36); Mean Corpuscular Volume 95.9 FL (87-102); Mean Platelet Volume 11.1 FL (9.6-12.0); Monocytes % 3.8 % (1.7-12.7); Neutrophils % 90.7 % (38.7-73.9); Platelet Count 174 T/CUMM (130-400); Red Blood Count 5.38 MC/CUMM (3.8-5.5); Red Cell Distribution Width 12.7 % (9.3-17.3); White Blood Count 16.6 T/CUMM (4-12)
[2018-09-04 06:07] LABS: Band Neutrophils 12 % (0-10); Lymphocytes 5 % (20-55); Platelet Estimate Adequate; Segmented Neutrophils 82 % (50-85); Total Cells Counted 100
[2018-09-04 06:21] LABS: Albumin 2.9 G/DL (3.4-5.0); Bilirubin,Total 2.1 MG/DL (0.2-1.0); Calcium 8.3 MG/DL (8.5-10.1); Osmolality,Calculated 268.8 MOS/KG (273-304); Risk Ratio 1.37; Total Protein 7.3 G/DL (6.4-8.3); VLDL CHOLESTEROL 11.2 MG/DL
[2018-09-04] MEDS ORDERED: MAGNESIUM SULF RIDER 4 GM in PREMIX 1 EACH IV ONE (07:24)
[2018-09-04] MEDS: ACETAMINOPHEN 325 MG TABLET PO PRN ×2 (09:38→20:55)
[2018-09-04] MEDS: POTASSIUM CHLORIDE 20 MEQ TABLET PO SCH ×3 (09:39→16:42)
[2018-09-04] MEDS: POTASSIUM CHLORIDE INJ 40 MEQ in LACTATED RINGERS 1,000 ML IV SCH ×2 (09:39→20:17)
[2018-09-04] MEDS: cloNIDine 0.1 MG TABLET PO SCH ×2 (09:54→20:53)
[2018-09-04] MEDS: chlordiazePOXIDE 25 MG CAPSULE PO SCH ×4 (10:02→20:43)
[2018-09-04] MEDS: FAMOTIDINE 20 MG/2 ML VIAL IV SCH ×2 (10:15→21:00)
[2018-09-04] MEDS: ENOXAPARIN 40 MG/0.4 ML SYRINGE SUBCUT SCH (10:21)
[2018-09-05] MEDS: ALBUTEROL/IPRATROPIUM 3 ML NEB RESP TX PRN ×5 (01:00→16:18)
[2018-09-05] MEDS: MEROPENEM 1,000 MG in SODIUM CHLORIDE 0.9% 100 ML IV SCH ×3 (02:16→18:55)
[2018-09-05] MEDS: HYDROmorphone 2 MG/1 ML VIAL IV PRN (02:26)
[2018-09-05] MEDS: POTASSIUM CHLORIDE INJ 40 MEQ in LACTATED RINGERS 1,000 ML IV SCH ×3 (02:35→04:57)
[2018-09-05] MEDS: LORazepam 2 MG/1 ML VIAL IV PRN ×2 (04:36→09:11)
[2018-09-05 04:51] LABS: Basophils # 0.1 10*3/uL (0.0-0.2); Basophils % 0.3 % (0.0-0.8); Eosinophils % 0.1 % (0.00-10.9); Hematocrit 46.1 VOL% (42.0-52.0); Hemoglobin 15.3 GM/DL (14.0-18.0); Immature Granulocytes % 1.6 %; Immature Granulocytes Absolute 0.24 #; Lymphocytes # 1.1 10*3/uL (1.4-4.0); Lymphocytes % 7.2 % (21.2-54.2); Mean Corpuscular HGB Conc 33.2 GM/DL (32-36); Mean Corpuscular Volume 97.5 FL (87-102); Mean Platelet Volume 10.6 FL (9.6-12.0); Monocytes % 6.4 % (1.7-12.7); Neutrophils % 84.4 % (38.7-73.9); Platelet Count 137 T/CUMM (130-400); Red Blood Count 4.73 MC/CUMM (3.8-5.5); Red Cell Distribution Width 13.1 % (9.3-17.3); White Blood Count 15.4 T/CUMM (4-12)
[2018-09-05 05:21] LABS: Albumin 2.4 G/DL (3.4-5.0); Bilirubin,Total 1.5 MG/DL (0.2-1.0); Calcium 7.9 MG/DL (8.5-10.1); Osmolality,Calculated 272.7 MOS/KG (273-304); Total Protein 6.4 G/DL (6.4-8.3)
[2018-09-05 05:25] LABS: Band Neutrophils 10 % (0-10); Lymphocytes 4 % (20-55); Metamyelocytes 2 %; Myelocytes 1 %; Segmented Neutrophils 79 % (50-85); Total Cells Counted 100
[2018-09-05 05:27] LABS: Hypochromasia 1+; Platelet Estimate Decreased
[2018-09-05] MEDS: cloNIDine 0.1 MG TABLET PO SCH ×2 (09:03→21:05)
[2018-09-05] MEDS: chlordiazePOXIDE 25 MG CAPSULE PO SCH ×4 (09:03→21:05)
[2018-09-05] MEDS: ENOXAPARIN 40 MG/0.4 ML SYRINGE SUBCUT SCH (09:03)
[2018-09-05] MEDS: FAMOTIDINE 20 MG/2 ML VIAL IV SCH ×2 (09:10→21:05)
[2018-09-05] MEDS ORDERED: ALBUTEROL/IPRATROPIUM 3 ML NEB RESP TX ONE (09:34)
[2018-09-05] MEDS ORDERED: FUROSEMIDE 40 MG/4 ML VIAL IV ONE (10:17)
[2018-09-05] MEDS ORDERED: MAGNESIUM SULF RIDER 4 GM in PREMIX 1 EACH IV PRN (13:04)
[2018-09-05] MEDS ORDERED: MAGNESIUM SULF RIDER 2 GM in PREMIX 1 EACH IV PRN (13:04)
[2018-09-06] MEDS ORDERED: HALOPERIDOL 5 MG/ML AMP IM ONE (02:10)
[2018-09-06] MEDS ORDERED: ALBUTEROL/IPRATROPIUM 3 ML NEB RESP TX ONE (02:39)
[2018-09-06] MEDS: LORazepam 2 MG/1 ML VIAL IV PRN (03:11)
[2018-09-06] MEDS: MEROPENEM 1,000 MG in SODIUM CHLORIDE 0.9% 100 ML IV SCH ×2 (03:15→09:29)
[2018-09-06 05:27] LABS: Basophils % 0.3 % (0.0-0.8); Eosinophils # 0.1 10*3/uL (0.0-0.87); Eosinophils % 0.6 % (0.00-10.9); Hematocrit 42.1 VOL% (42.0-52.0); Hemoglobin 13.8 GM/DL (14.0-18.0); Immature Granulocytes % 1.3 %; Immature Granulocytes Absolute 0.14 #; Lymphocytes # 1.3 10*3/uL (1.4-4.0); Mean Corpuscular HGB Conc 32.8 GM/DL (32-36); Mean Corpuscular Volume 97.5 FL (87-102); Mean Platelet Volume 10.4 FL (9.6-12.0); Monocytes % 8.9 % (1.7-12.7); Neutrophils % 76.9 % (38.7-73.9); Platelet Count 159 T/CUMM (130-400); Red Blood Count 4.32 MC/CUMM (3.8-5.5)
[2018-09-06 05:38] LABS: Albumin 2.1 G/DL (3.4-5.0); Bilirubin,Total 1.4 MG/DL (0.2-1.0); Calcium 8.4 MG/DL (8.5-10.1); Osmolality,Calculated 271.8 MOS/KG (273-304); Total Protein 6.4 G/DL (6.4-8.3)
[2018-09-06 06:00] LABS: Band Neutrophils 1 % (0-10); Lymphocytes 12 % (20-55); Metamyelocytes 1 %; Segmented Neutrophils 79 % (50-85); Total Cells Counted 100
[2018-09-06 06:01] LABS: Hypochromasia Slight; Platelet Estimate Normal
[2018-09-06] MEDS: POTASSIUM CHLORIDE 20 MEQ TABLET PO PRN ×2 (07:36→09:29)
[2018-09-06] MEDS: chlordiazePOXIDE 25 MG CAPSULE PO SCH (08:24)
[2018-09-06] MEDS: cloNIDine 0.1 MG TABLET PO SCH (08:24)
[2018-09-06] MEDS: ENOXAPARIN 40 MG/0.4 ML SYRINGE SUBCUT SCH (09:30)
[2018-09-06] MEDS: FAMOTIDINE 20 MG/2 ML VIAL IV SCH (09:30)
[2018-09-06] MEDS: ALBUTEROL/IPRATROPIUM 3 ML NEB RESP TX PRN (09:52)
[2018-09-06] MEDS ORDERED: methylPREDNISolone SOD SUC 125 MG/2 ML VIAL IV ONE (09:56)
[2018-09-06] MEDS ORDERED: POTASSIUM CHLORIDE 20 MEQ TABLET PO ONE ×2 (10:00→12:00)
[2018-09-06] MEDS ORDERED: FUROSEMIDE 40 MG/4 ML VIAL IV ONE (11:48)
[2018-09-06 11:56] VITALS: BP 129/83
== END 2018-09-06 15:23 | disposition left against medical advice (07) | DRG 438 ==
LOC: N.ED 08:01 → SUATTDRO 09:55 → N.EDINP 09:56 → N.4E 11:23
PROVIDERS: ADMIT Family Medicine; ATTEND Internal Medicine Cardiovascular Disease

== ENCOUNTER 2018-11-28 02:04 | Inpatient (IN) ==
[2018-11-28] MEDS ORDERED: SODIUM CHLORIDE 0.9% 1,000 ML IV STA (03:31)
[2018-11-28] MEDS ORDERED: KETOROLAC 30 MG/1 ML VIAL IV STA (03:31)
[2018-11-28] MEDS ORDERED: ONDANSETRON 4 MG/2 ML VIAL IV STA (03:31)
[2018-11-28 04:00] LABS: Basophils % 0.3 % (0.0-0.8); Eosinophils # 0.1 10*3/uL (0.0-0.87); Eosinophils % 1.1 % (0.00-10.9); Hematocrit 50.9 VOL% (42.0-52.0); Hemoglobin 17.6 GM/DL (14.0-18.0); Immature Granulocytes % 0.3 %; Immature Granulocytes Absolute 0.02 #; Lymphocytes % 16.4 % (21.2-54.2); Mean Corpuscular HGB Conc 34.6 GM/DL (32-36); Mean Corpuscular Volume 94.3 FL (87-102); Mean Platelet Volume 9.5 FL (9.6-12.0); Monocytes % 7.7 % (1.7-12.7); Neutrophils % 74.2 % (38.7-73.9); Platelet Count 198 T/CUMM (130-400); Red Cell Distribution Width 12.2 % (9.3-17.3); White Blood Count 6.4 T/CUMM (4-12)
[2018-11-28 04:19] LABS: Alanine Aminotransferase 95 U/L (16-61); Albumin 3.2 G/DL (3.4-5.0); Alkaline Phosphatase 82 U/L (45-117); Amylase 231 U/L (25-115); Aspartate Amino Transferase 121 U/L (0-37); Blood Urea Nitrogen 5 MG/DL (7-18); Calcium 9.1 MG/DL (8.5-10.1); Estimated Glom Filtration Rate 146 ML/MIN; Glucose 102 MG/DL (74-106); Osmolality,Calculated 266.1 MOS/KG (273-304)
[2018-11-28] MEDS ORDERED: MORPHINE 4 MG/1 ML VIAL IV STA (04:26)
[2018-11-28] MEDS ORDERED: NICOTINE 21 MG/24 HR PATCH TRANSDERM PRN (05:03)
[2018-11-28] MEDS ORDERED: ACETAMINOPHEN 325 MG TABLET PO PRN (05:03)
[2018-11-28] MEDS ORDERED: PROMETHAZINE 25 MG/1 ML VIAL IM PRN (05:03)
[2018-11-28] MEDS ORDERED: diphenhydrAMINE CAP 25 MG CAPSULE PO PRN (05:03)
[2018-11-28] MEDS ORDERED: PANTOPRAZOLE 40 MG VIAL IV STA (05:05)
[2018-11-28] MEDS ORDERED: LORazepam 2 MG/1 ML VIAL IV PRN (05:08)
[2018-11-28 05:40] LABS: Risk Ratio 1.4; VLDL CHOLESTEROL 10.6 MG/DL
[2018-11-28] MEDS: SODIUM CHLORIDE 0.9% 1,000 ML IV SCH ×2 (06:08→14:51)
[2018-11-28] MEDS: DEXT 5% NACL 0.45% KCL 40 MEQ 40 MEQ/1,000 ML BAG IV SCH ×2 (06:10→16:43)
[2018-11-28] MEDS: ONDANSETRON 4 MG/2 ML VIAL IV PRN ×3 (08:25→19:58)
[2018-11-28] MEDS: MORPHINE 4 MG/1 ML VIAL IV PRN ×3 (08:27→19:57)
[2018-11-28] MEDS: POTASSIUM CHLORIDE RIDER 10 MEQ in PREMIX 1 EACH IV PRN ×4 (08:32→13:27)
[2018-11-28] MEDS: PANTOPRAZOLE 40 MG TABLET PO SCH (16:32)
[2018-11-28] MEDS ORDERED: hydrALAZINE 20 MG/1 ML VIAL IV PRN (16:32)
[2018-11-28] MEDS: MULTIVITAMIN (CENTRUM) TABLET PO SCH (16:32)
[2018-11-28] MEDS: POTASSIUM CHLORIDE 20 MEQ TABLET PO SCH (22:19)
[2018-11-29] MEDS: POTASSIUM CHLORIDE INJ 20 MEQ in LACTATED RINGERS 1,000 ML IV SCH ×6 (00:17→20:42)
[2018-11-29] MEDS: HYDROmorphone 2 MG/1 ML VIAL IV PRN ×2 (00:36→04:46)
[2018-11-29 05:38] LABS: Calcium 9.2 MG/DL (8.5-10.1); Osmolality,Calculated 269.8 MOS/KG (273-304)
[2018-11-29] MEDS: PANTOPRAZOLE 40 MG TABLET PO SCH (08:57)
[2018-11-29] MEDS: MULTIVITAMIN (CENTRUM) TABLET PO SCH (08:57)
[2018-11-29] MEDS: POTASSIUM CHLORIDE 20 MEQ TABLET PO SCH ×3 (08:57→20:44)
[2018-11-29] MEDS: POTASSIUM CHLORIDE RIDER 10 MEQ in PREMIX 1 EACH IV PRN (09:18)
[2018-11-29] MEDS: POTASSIUM CHLORIDE 20 MEQ/15 ML UDCUP PO SCH ×3 (12:51→20:44)
[2018-11-30] MEDS: ONDANSETRON 4 MG/2 ML VIAL IV PRN ×2 (00:59→06:39)
[2018-11-30] MEDS: HYDROmorphone 2 MG/1 ML VIAL IV PRN ×2 (01:52→06:38)
[2018-11-30] MEDS: POTASSIUM CHLORIDE INJ 20 MEQ in LACTATED RINGERS 1,000 ML IV SCH (04:22)
[2018-11-30 05:56] LABS: Calcium 9.7 MG/DL (8.5-10.1); Osmolality,Calculated 265.2 MOS/KG (273-304)
[2018-11-30 06:04] LABS: Albumin 2.9 G/DL (3.4-5.0); Bilirubin,Direct 0.39 MG/DL (0.0-0.20); Bilirubin,Indirect 0.8 MG/DL (0.0-1.0); Bilirubin,Total 1.2 MG/DL (0.2-1.0); Total Protein 7.7 G/DL (6.4-8.3)
[2018-11-30] MEDS ORDERED: INFLUENZA VIRUS VACCINE 0.5 ML SYRINGE IM ONE (08:10)
[2018-11-30] MEDS: MULTIVITAMIN (CENTRUM) TABLET PO SCH (09:15)
[2018-11-30] MEDS: PANTOPRAZOLE 40 MG TABLET PO SCH (09:15)
[2018-11-30] MEDS: POTASSIUM CHLORIDE 20 MEQ TABLET PO SCH (09:15)
[2018-11-30 12:41] VITALS: BP 128/90
== END 2018-11-30 13:25 | disposition home or self-care (01) | DRG 440 ==
LOC: N.EDINP 02:04 → N.ED 02:04 → SUATTDRO 05:03 → N.4E 05:37 → SUATTDRO 11-29 14:22
PROVIDERS: ADMIT Internal Medicine; ATTEND Internal Medicine

== ENCOUNTER 2019-01-02 15:29 | Inpatient (IN) ==
[2019-01-02 16:54] LABS: Basophils % 0.3 % (0.0-0.8); Eosinophils # 0.1 10*3/uL (0.0-0.87); Eosinophils % 1.7 % (0.00-10.9); Hematocrit 50.7 VOL% (42.0-52.0); Hemoglobin 17.4 GM/DL (14.0-18.0); Immature Granulocytes % 0.3 %; Immature Granulocytes Absolute 0.02 #; Lymphocytes # 1.7 10*3/uL (1.4-4.0); Lymphocytes % 24.9 % (21.2-54.2); Mean Corpuscular HGB Conc 34.3 GM/DL (32-36); Mean Corpuscular Volume 93.2 FL (87-102); Mean Platelet Volume 9.6 FL (9.6-12.0); Monocytes % 7.2 % (1.7-12.7); Neutrophils % 65.6 % (38.7-73.9); Platelet Count 166 T/CUMM (130-400); Red Blood Count 5.44 MC/CUMM (3.8-5.5); White Blood Count 6.9 T/CUMM (4-12)
[2019-01-02 17:21] LABS: Albumin 3.7 G/DL (3.4-5.0); Bilirubin,Total 1.4 MG/DL (0.2-1.0); Calcium 9.5 MG/DL (8.5-10.1); Total Protein 8.6 G/DL (6.4-8.3)
[2019-01-02 17:43] LABS: Apearance,Urine CLEAR (Clear); Bilirubin,Urine Negative (Negative); Blood, Urine Small mg/dL (Negative); Glucose,Urine (UA) Negative (Negative); Ketones,Urine 20 mg/dL (Negative); Mucus,Urine Moderate /LPF (Occasional); Nitrite,Urine Negative (Negative); Protein,Urine 30 MG/DL; RBC,Urine 2 /HPF (0-4); Squamous Epithelial Cell,Urine Occasional /HPF (0-10); Urine Color Amber (Yellow); Urine Specific Gravity 1.025 (1.001-1.035); WBC,Urine 1 /HPF (0-6)
[2019-01-02] MEDS ORDERED: ALUM/MAG/SIMETH/LIDO VISC 1:1 30 ML BOTTLE PO STA (17:49)
[2019-01-02] MEDS ORDERED: SODIUM CHLORIDE 0.9% 1,000 ML IV STA (17:49)
[2019-01-02] MEDS ORDERED: HYDROmorphone 2 MG/1 ML VIAL IV STA (17:49)
[2019-01-02] MEDS ORDERED: ONDANSETRON 4 MG/2 ML VIAL IV STA (17:49)
[2019-01-02] MEDS ORDERED: PANTOPRAZOLE 40 MG VIAL IV STA (17:49)
[2019-01-02 19:42] LABS: Barbiturates Screen,Urine Negative (Negative); Benzodiazepines Screen,Urine Negative (Negative); Cannabinoid Screen,Urine Negative (Negative); Opiate Screen,Urine Positive (Negative); Phencyclidine Screen,Urine Negative (Negative)
[2019-01-02] MEDS: ALBUTEROL/IPRATROPIUM 3 ML NEB RESP TX SCH ×2 (21:00→21:32)
[2019-01-02] MEDS: ENOXAPARIN 40 MG/0.4 ML SYRINGE SUBCUT SCH (21:03)
[2019-01-02] MEDS: chlordiazePOXIDE 10 MG CAPSULE PO SCH (21:03)
[2019-01-02] MEDS: DEXT 5% LACT RING KCL 20 MEQ 20 MEQ/1,000 ML BAG IV SCH (22:25)
[2019-01-02] MEDS: HYDROmorphone 2 MG/1 ML VIAL IV PRN (23:39)
[2019-01-02] MEDS: ONDANSETRON 4 MG/2 ML VIAL IV PRN (23:39)
[2019-01-03] MEDS: ALBUTEROL/IPRATROPIUM 3 ML NEB RESP TX SCH ×4 (01:19→20:21)
[2019-01-03] MEDS: HYDROmorphone 2 MG/1 ML VIAL IV PRN ×4 (04:52→20:01)
[2019-01-03] MEDS: ONDANSETRON 4 MG/2 ML VIAL IV PRN ×4 (04:52→20:03)
[2019-01-03 05:06] LABS: Calcium 8.9 MG/DL (8.5-10.1); Osmolality,Calculated 268.1 MOS/KG (273-304)
[2019-01-03] MEDS: DEXT 5% LACT RING KCL 20 MEQ 20 MEQ/1,000 ML BAG IV SCH ×4 (05:55→22:24)
[2019-01-03 09:17] LABS: Risk Ratio 1.46; VLDL CHOLESTEROL 14.8 MG/DL
[2019-01-03] MEDS: THIAMINE 200 MG/2 ML VIAL IV SCH (09:24)
[2019-01-03] MEDS: PANTOPRAZOLE 40 MG VIAL IV SCH (09:25)
[2019-01-03] MEDS: chlordiazePOXIDE 10 MG CAPSULE PO SCH ×4 (09:25→20:04)
[2019-01-03] MEDS: FOLIC ACID 1 MG TABLET PO SCH (09:25)
[2019-01-03] MEDS: POTASSIUM CHLORIDE 20 MEQ TABLET PO PRN ×3 (09:25→14:32)
[2019-01-03] MEDS: amLODIPine 5 MG TABLET PO SCH (09:25)
[2019-01-03] MEDS: ENOXAPARIN 40 MG/0.4 ML SYRINGE SUBCUT SCH (20:04)
[2019-01-04] MEDS: ONDANSETRON 4 MG/2 ML VIAL IV PRN (00:10)
[2019-01-04] MEDS: HYDROmorphone 2 MG/1 ML VIAL IV PRN (00:10)
[2019-01-04] MEDS: ALBUTEROL/IPRATROPIUM 3 ML NEB RESP TX SCH ×2 (01:28→07:42)
[2019-01-04] MEDS: DEXT 5% LACT RING KCL 20 MEQ 20 MEQ/1,000 ML BAG IV SCH (03:46)
[2019-01-04] MEDS: amLODIPine 5 MG TABLET PO SCH (08:36)
[2019-01-04] MEDS: THIAMINE 200 MG/2 ML VIAL IV SCH (08:36)
[2019-01-04] MEDS: FOLIC ACID 1 MG TABLET PO SCH (08:36)
[2019-01-04] MEDS: chlordiazePOXIDE 10 MG CAPSULE PO SCH ×2 (08:36→12:18)
[2019-01-04] MEDS: PANTOPRAZOLE 40 MG VIAL IV SCH (08:37)
[2019-01-04 11:37] VITALS: BP 133/94
== END 2019-01-04 12:35 | disposition home or self-care (01) | DRG 440 ==
LOC: N.2W 15:29 → N.ED 15:29 → N.EDINP 15:29 → N.2W 18:58 → N.3E 01-03 16:51 → UNDODISOB 01-04 12:35
PROVIDERS: ADMIT Internal Medicine; ATTEND Internal Medicine

== ENCOUNTER 2019-01-29 13:58 | Inpatient (IN) ==
[2019-01-29] MEDS ORDERED: SODIUM CHLORIDE 0.9% 1,000 ML IV STA (16:08)
[2019-01-29] MEDS ORDERED: ONDANSETRON 4 MG/2 ML VIAL IV ONE (16:17)
[2019-01-29] MEDS ORDERED: MORPHINE 4 MG/1 ML VIAL IV STA (17:05)
[2019-01-29 17:10] LABS: Basophils % 0.3 % (0.0-0.8); Eosinophils # 0.1 10*3/uL (0.0-0.87); Eosinophils % 0.9 % (0.00-10.9); Hemoglobin 18.3 GM/DL (14.0-18.0); Immature Granulocytes % 0.3 %; Immature Granulocytes Absolute 0.02 #; Lymphocytes # 1.2 10*3/uL (1.4-4.0); Lymphocytes % 20.6 % (21.2-54.2); Mean Corpuscular HGB Conc 33.9 GM/DL (32-36); Mean Corpuscular Volume 95.1 FL (87-102); Monocytes % 7.8 % (1.7-12.7); Neutrophils % 70.1 % (38.7-73.9); Platelet Count 182 T/CUMM (130-400); Red Blood Count 5.68 MC/CUMM (3.8-5.5); Red Cell Distribution Width 13.1 % (9.3-17.3); White Blood Count 5.8 T/CUMM (4-12)
[2019-01-29 17:34] LABS: Albumin 3.5 G/DL (3.4-5.0); Bilirubin,Total 1.5 MG/DL (0.2-1.0); Calcium 9.6 MG/DL (8.5-10.1); Osmolality,Calculated 268.1 MOS/KG (273-304); Total Protein 8.8 G/DL (6.4-8.3)
[2019-01-29] MEDS ORDERED: POTASSIUM CHLORIDE 20 MEQ TABLET PO STA (17:44)
[2019-01-29] MEDS ORDERED: ONDANSETRON 4 MG/2 ML VIAL IV PRN (18:17)
[2019-01-29] MEDS ORDERED: ALBUTEROL 2.5 MG/3 ML NEB RESP TX PRN (18:50)
[2019-01-29] MEDS ORDERED: LORazepam 2 MG/1 ML VIAL IV PRN (18:54)
[2019-01-29] MEDS ORDERED: amLODIPine 5 MG TABLET PO ONE (19:01)
[2019-01-29] MEDS: POTASSIUM CHLORIDE 20 MEQ TABLET PO PRN ×2 (20:22→23:23)
[2019-01-29] MEDS: SODIUM CHLORIDE 0.9% 1,000 ML IV SCH (20:23)
[2019-01-29] MEDS: ENOXAPARIN 40 MG/0.4 ML SYRINGE SUBCUT SCH (20:23)
[2019-01-29] MEDS: MORPHINE 4 MG/1 ML VIAL IV PRN ×2 (20:31→23:19)
[2019-01-29] MEDS: ALBUTEROL/IPRATROPIUM 3 ML NEB RESP TX PRN (20:40)
[2019-01-29 21:20] LABS: Hepatitis B Core IgM Quant < 0.05 Index; Hepatitis B Surface Ag Quant 0.16 Index; Hepatitis B Surface Ag Result Negative (Negative); Hepatitis C Virus Ab Quant 0.18 Index; Hepatitis C Virus Ab Result Negative (Negative)
[2019-01-30 00:38] LABS: Apearance,Urine CLEAR (Clear); Bilirubin,Urine Negative (Negative); Blood, Urine Small mg/dL (Negative); Glucose,Urine (UA) Negative (Negative); Ketones,Urine 20 mg/dL (Negative); Mucus,Urine Occasional /LPF (Occasional); Nitrite,Urine Negative (Negative); Protein,Urine Negative; RBC,Urine 2 /HPF (0-4); Squamous Epithelial Cell,Urine Occasional /HPF (0-10); Urine Color Yellow (Yellow); Urine Specific Gravity 1.014 (1.001-1.035); WBC,Urine <1 /HPF (0-6)
[2019-01-30 02:35] LABS: Barbiturates Screen,Urine Negative (Negative); Benzodiazepines Screen,Urine Positive (Negative); Cannabinoid Screen,Urine Negative (Negative); Opiate Screen,Urine Positive (Negative); Phencyclidine Screen,Urine Negative (Negative)
[2019-01-30] MEDS: SODIUM CHLORIDE 0.9% 1,000 ML IV SCH ×3 (04:04→13:10)
[2019-01-30] MEDS: MORPHINE 4 MG/1 ML VIAL IV PRN ×3 (04:05→16:08)
[2019-01-30 06:06] LABS: Basophils % 0.3 % (0.0-0.8); Eosinophils # 0.1 10*3/uL (0.0-0.87); Eosinophils % 1.8 % (0.00-10.9); Hematocrit 48.7 VOL% (42.0-52.0); Hemoglobin 16.3 GM/DL (14.0-18.0); Immature Granulocytes % 0.3 %; Immature Granulocytes Absolute 0.02 #; Lymphocytes # 1.2 10*3/uL (1.4-4.0); Lymphocytes % 17.6 % (21.2-54.2); Mean Corpuscular HGB Conc 33.5 GM/DL (32-36); Mean Corpuscular Volume 96.2 FL (87-102); Mean Platelet Volume 9.6 FL (9.6-12.0); Monocytes % 8.7 % (1.7-12.7); Neutrophils % 71.3 % (38.7-73.9); Platelet Count 162 T/CUMM (130-400); Red Blood Count 5.06 MC/CUMM (3.8-5.5); Red Cell Distribution Width 13.3 % (9.3-17.3); White Blood Count 6.7 T/CUMM (4-12)
[2019-01-30 06:31] LABS: Bilirubin,Total 1.6 MG/DL (0.2-1.0); Calcium 8.6 MG/DL (8.5-10.1); Osmolality,Calculated 271.7 MOS/KG (273-304); Risk Ratio 1.39; Total Protein 7.4 G/DL (6.4-8.3); VLDL CHOLESTEROL 12.2 MG/DL
[2019-01-30] MEDS ORDERED: MAGNESIUM SULF RIDER 4 GM in PREMIX 1 EACH IV PRN (08:55)
[2019-01-30] MEDS ORDERED: MAGNESIUM SULF RIDER 2 GM in PREMIX 1 EACH IV PRN (08:55)
[2019-01-30] MEDS: POTASSIUM CHLORIDE 20 MEQ TABLET PO PRN ×3 (09:02→13:10)
[2019-01-30] MEDS: amLODIPine 5 MG TABLET PO SCH (09:03)
[2019-01-30] MEDS: THIAMINE 100 MG TABLET PO SCH (09:03)
[2019-01-30] MEDS: FOLIC ACID 1 MG TABLET PO SCH (09:03)
[2019-01-30] MEDS: MULTIVITAMIN (CENTRUM) TABLET PO SCH (09:03)
[2019-01-30] MEDS: PANTOPRAZOLE 40 MG VIAL IV SCH (09:04)
[2019-01-30] MEDS: ALBUTEROL/IPRATROPIUM 3 ML NEB RESP TX PRN (14:14)
[2019-01-30] MEDS: POTASSIUM CHLORIDE INJ 20 MEQ in LACTATED RINGERS 1,000 ML IV SCH (21:22)
[2019-01-30] MEDS: ENOXAPARIN 40 MG/0.4 ML SYRINGE SUBCUT SCH (21:24)
[2019-01-31] MEDS: POTASSIUM CHLORIDE INJ 20 MEQ in LACTATED RINGERS 1,000 ML IV SCH ×7 (01:14→23:15)
[2019-01-31] MEDS: POTASSIUM CHLORIDE 20 MEQ TABLET PO PRN ×2 (02:58→05:21)
[2019-01-31 05:28] LABS: Basophils % 0.2 % (0.0-0.8); Eosinophils # 0.1 10*3/uL (0.0-0.87); Eosinophils % 1.7 % (0.00-10.9); Hematocrit 49.8 VOL% (42.0-52.0); Hemoglobin 16.5 GM/DL (14.0-18.0); Immature Granulocytes % 0.3 %; Immature Granulocytes Absolute 0.02 #; Lymphocytes # 1.2 10*3/uL (1.4-4.0); Lymphocytes % 18.9 % (21.2-54.2); Mean Corpuscular HGB Conc 33.1 GM/DL (32-36); Mean Corpuscular Volume 95.2 FL (87-102); Mean Platelet Volume 10.1 FL (9.6-12.0); Monocytes % 8.7 % (1.7-12.7); Neutrophils % 70.2 % (38.7-73.9); Platelet Count 163 T/CUMM (130-400); Red Blood Count 5.23 MC/CUMM (3.8-5.5); White Blood Count 6.6 T/CUMM (4-12)
[2019-01-31 06:06] LABS: Bilirubin,Total 1.4 MG/DL (0.2-1.0); Calcium 8.9 MG/DL (8.5-10.1); Osmolality,Calculated 265.1 MOS/KG (273-304); Total Protein 7.9 G/DL (6.4-8.3)
[2019-01-31] MEDS: FOLIC ACID 1 MG TABLET PO SCH (10:30)
[2019-01-31] MEDS: MULTIVITAMIN (CENTRUM) TABLET PO SCH (10:31)
[2019-01-31] MEDS: THIAMINE 100 MG TABLET PO SCH (10:31)
[2019-01-31] MEDS: amLODIPine 5 MG TABLET PO SCH (10:31)
[2019-01-31] MEDS: PANTOPRAZOLE 40 MG VIAL IV SCH (10:31)
[2019-01-31] MEDS: ENOXAPARIN 40 MG/0.4 ML SYRINGE SUBCUT SCH (21:39)
[2019-02-01] MEDS: POTASSIUM CHLORIDE INJ 20 MEQ in LACTATED RINGERS 1,000 ML IV SCH (03:14)
[2019-02-01 05:55] LABS: Calcium 9.2 MG/DL (8.5-10.1); Osmolality,Calculated 267.1 MOS/KG (273-304)
[2019-02-01 08:43] VITALS: BP 135/99
[2019-02-01] MEDS: THIAMINE 100 MG TABLET PO SCH (09:04)
[2019-02-01] MEDS: amLODIPine 5 MG TABLET PO SCH (09:04)
[2019-02-01] MEDS: MULTIVITAMIN (CENTRUM) TABLET PO SCH (09:05)
[2019-02-01] MEDS: FOLIC ACID 1 MG TABLET PO SCH (09:05)
[2019-02-01] MEDS: PANTOPRAZOLE 40 MG VIAL IV SCH (09:05)
== END 2019-02-01 10:09 | disposition home or self-care (01) | DRG 440 ==
LOC: N.EDINP 13:58 → N.ED 13:58 → N.3E 18:30 → SUATTDRO 01-30 11:24
PROVIDERS: ADMIT Internal Medicine; ATTEND Internal Medicine

== ENCOUNTER 2019-04-22 15:39 | Observation (INO) ==
[2019-04-22 17:08] LABS: Basophils % 0.2 % (0.0-0.8); Eosinophils # 0.1 10*3/uL (0.0-0.87); Eosinophils % 0.9 % (0.00-10.9); Hemoglobin 17.9 GM/DL (14.0-18.0); Immature Granulocytes % 0.2 %; Immature Granulocytes Absolute 0.02 #; Lymphocytes # 1.6 10*3/uL (1.4-4.0); Lymphocytes % 18.4 % (21.2-54.2); Mean Corpuscular HGB Conc 33.1 GM/DL (32-36); Mean Corpuscular Volume 95.1 FL (87-102); Monocytes % 7.1 % (1.7-12.7); Neutrophils % 73.2 % (38.7-73.9); Platelet Count 297 T/CUMM (130-400); Red Blood Count 5.68 MC/CUMM (3.8-5.5); Red Cell Distribution Width 12.9 % (9.3-17.3); White Blood Count 8.6 T/CUMM (4-12)
[2019-04-22] MEDS ORDERED: ONDANSETRON 4 MG/2 ML VIAL IV STA (17:13)
[2019-04-22] MEDS ORDERED: SODIUM CHLORIDE 0.9% 1,000 ML IV STA (17:13)
[2019-04-22] MEDS ORDERED: PANTOPRAZOLE 40 MG VIAL IV STA (17:13)
[2019-04-22] MEDS ORDERED: MORPHINE 4 MG/1 ML VIAL IV STA ×2 (17:13→20:07)
[2019-04-22] MEDS ORDERED: METOCLOPRAMIDE 10 MG/2 ML VIAL IV STA (17:13)
[2019-04-22 17:33] LABS: Albumin 3.7 G/DL (3.4-5.0); Bilirubin,Total 1.2 MG/DL (0.2-1.0); Calcium 9.6 MG/DL (8.5-10.1); Total Protein 8.8 G/DL (6.4-8.3)
[2019-04-22 17:39] LABS: Apearance,Urine CLEAR (Clear); Bilirubin,Urine Negative (Negative); Blood, Urine Negative (Negative); Glucose,Urine (UA) Negative (Negative); Hyaline Casts,Urine 3 /LPF (0-3); Ketones,Urine 20 mg/dL (Negative); Mucus,Urine Few /LPF (Occasional); Nitrite,Urine Negative (Negative); Protein,Urine 30 MG/DL; Urine Color Yellow (Yellow); Urine Specific Gravity 1.019 (1.001-1.035); WBC,Urine 1 /HPF (0-6)
[2019-04-22 17:44] LABS: Barbiturates Screen,Urine Negative (Negative); Benzodiazepines Screen,Urine Negative (Negative); Cannabinoid Screen,Urine Negative (Negative); Opiate Screen,Urine Negative (Negative); Phencyclidine Screen,Urine Negative (Negative)
[2019-04-22] MEDS ORDERED: diphenhydrAMINE 50 MG/1 ML VIAL IV STA (17:47)
[2019-04-22] MEDS ORDERED: POTASSIUM CHLORIDE 20 MEQ TABLET PO ONE (21:32)
[2019-04-22] MEDS: ENOXAPARIN 40 MG/0.4 ML SYRINGE SUBCUT SCH (22:48)
[2019-04-22] MEDS: SODIUM CHLORIDE 0.9% 1,000 ML IV SCH (22:49)
[2019-04-23] MEDS: ONDANSETRON 4 MG/2 ML VIAL IV PRN ×2 (00:34→08:41)
[2019-04-23] MEDS: MORPHINE 4 MG/1 ML VIAL IV PRN ×5 (00:36→23:35)
[2019-04-23] MEDS ORDERED: ALBUTEROL/IPRATROPIUM 3 ML NEB RESP TX ONE ×2 (01:59→02:02)
[2019-04-23] MEDS: ALBUTEROL/IPRATROPIUM 3 ML NEB RESP TX SCH ×3 (07:10→20:30)
[2019-04-23 07:11] LABS: Basophils % 0.2 % (0.0-0.8); Eosinophils % 0.3 % (0.00-10.9); Hematocrit 51.2 VOL% (42.0-52.0); Hemoglobin 16.8 GM/DL (14.0-18.0); Immature Granulocytes % 0.3 %; Immature Granulocytes Absolute 0.03 #; Lymphocytes # 1.4 10*3/uL (1.4-4.0); Lymphocytes % 15.2 % (21.2-54.2); Mean Corpuscular HGB Conc 32.8 GM/DL (32-36); Mean Corpuscular Volume 95.5 FL (87-102); Mean Platelet Volume 8.9 FL (9.6-12.0); Monocytes % 7.1 % (1.7-12.7); Neutrophils % 76.9 % (38.7-73.9); Platelet Count 276 T/CUMM (130-400); Red Blood Count 5.36 MC/CUMM (3.8-5.5); White Blood Count 9.2 T/CUMM (4-12)
[2019-04-23 07:29] LABS: Albumin 3.3 G/DL (3.4-5.0); Bilirubin,Total 1.8 MG/DL (0.2-1.0); Calcium 9.2 MG/DL (8.5-10.1); Osmolality,Calculated 265.2 MOS/KG (273-304); Total Protein 8.3 G/DL (6.4-8.3)
[2019-04-23] MEDS: SODIUM CHLORIDE 0.9% 1,000 ML IV SCH ×2 (10:02→17:57)
[2019-04-23] MEDS: amLODIPine 5 MG TABLET PO SCH (12:15)
[2019-04-23] MEDS ORDERED: hydrALAZINE 20 MG/1 ML VIAL IV PRN (16:12)
[2019-04-23] MEDS: ENOXAPARIN 40 MG/0.4 ML SYRINGE SUBCUT SCH (21:58)
[2019-04-24] MEDS: ALBUTEROL/IPRATROPIUM 3 ML NEB RESP TX SCH ×2 (01:23→07:10)
[2019-04-24] MEDS: SODIUM CHLORIDE 0.9% 1,000 ML IV SCH (01:53)
[2019-04-24] MEDS ORDERED: POTASSIUM CHLORIDE 20 MEQ TABLET PO PRN (07:55)
[2019-04-24] MEDS ORDERED: POTASSIUM CHLORIDE 20 MEQ PACK PO SCH (09:00)
[2019-04-24] MEDS ORDERED: MULTIVITAMIN (CENTRUM) TABLET PO SCH (09:00)
[2019-04-24] MEDS: amLODIPine 5 MG TABLET PO SCH (10:22)
[2019-04-24 12:45] VITALS: BP 176/84
== END 2019-04-24 13:02 | disposition home or self-care (01) ==
LOC: N.ED 15:39 → N.EDINP 15:39 → N.2W 22:16
PROVIDERS: ADMIT Internal Medicine; ATTEND Internal Medicine